=== PATIENT | female | born 1955 | race Caucasian/White ===

== ENCOUNTER → 2021-08-23 | Outpatient (CLI) | payer BC ==
[~2021-08-23] MED LIST: NO MEDICATIONS; OMEP1CAP73 PO; VICO5TAB PO; VITA100024 PO
== END ==
LOC: M LABSMTC 11:01
PROVIDERS: ATTEND Anesthesiology
DX: Z01.818 Encounter for other preprocedural examination (principal); Z11.52 Encounter for screening for COVID-19

== ENCOUNTER 2021-08-28 13:21 | Day surgery (SDC) | payer MEDICARE ==
[~2021-08-28] VITALS: Ht 152.4 cm; Wt 82.9 kg
[~2021-08-28 13:21] MED LIST changes: +LIDOCAINE 1% MDV 20ML VIAL SQ PRN; +LR 1,000 ML IV ONE; +NS 1,000 ML IV ONE
[2021-08-28] MEDS ORDERED: ROCURONIUM BROMIDE 50 MG/5 ML VIAL As Ordered ONE (14:35)
[2021-08-28] MEDS ORDERED: propofoL 200 MG/20 ML VIAL As Ordered ONE (14:35)
[2021-08-28] MEDS ORDERED: dexameTHASONE 4 MG/ML 1ML VIAL (J1100 PER 1MG) As Ordered ONE (14:35)
[2021-08-28] MEDS ORDERED: LIDOCAINE 2% 100MG/5ML SDV (FOR ANES.) As Ordered ONE (14:35)
[2021-08-28] MEDS ORDERED: MIDAZOLAM INJ 2MG/2ML VIAL (J2250 PER 1MG) As Ordered ONE (14:36)
[2021-08-28] MEDS ORDERED: ONDANSETRON 4MG/2ML VIAL As Ordered ONE (14:36)
[2021-08-28] MEDS ORDERED: fentaNYL 100 MCG/2 ML INJECTION (J3010) As Ordered ONE (14:36)
[2021-08-28] MEDS ORDERED: SUGAMMADEX SODIUM 500 MG/5 ML VIAL (BRIDION) As Ordered ONE (14:37)
[2021-08-28] MEDS ORDERED: KETOROLAC 60MG 2ML VIAL As Ordered ONE (14:37)
[2021-08-28] MEDS ORDERED: PIPERACILLIN/TAZOBACTAM SOD 3.375 GM in D5W MINI-BAG PLUS 50 ML IV ONE (15:05)
[2021-08-28] MEDS ORDERED: ISOVUE-300 61% 50ML VIAL As Ordered ONE (15:15)
--- NOTE | 2021-08-28 16:46 | REP ---
INDICATION: ABNORMAL BILE DUCT. COMPARISON: None. TECHNIQUE: Multiple C-arm views right upper quadrant during ERCP. FINDINGS: Contrast opacifies intrahepatic bile ducts as well as the common bile duct. There is no persistent filling defect or stricture of the visualized bile ducts. The cystic duct is visualized. Contrast extends into the gallbladder, which is partially visualized, with no definite persistent filling defect. The distal pancreatic duct is partially opacified. IMPRESSION: 170 seconds of fluoroscopy time was utilized. <Electronically signed by Phani Ann > 08/28/21 [id number]
--- NOTE | 2021-08-28 16:52 | ROOR ---
Patient Name: Analilia Siegel Procedure Date: 08/28/2021 3:19 PM Date of : 1955 Age: 66 Room: [facility] Gender: Female Note Status: Finalized Procedure: ERCP Indications: Abdominal pain of suspected biliary origin, Abnormal MRCP, Abnormal abdominal ultrasound Providers: Jimmie Sarabia MD Referring MD: Tosha Aly MD Requesting Provider: Medicines: Monitored Anesthesia Care Complications: No immediate complications. Procedure: Pre-Anesthesia Assessment: - The heart rate, respiratory rate, oxygen saturations, blood pressure, adequacy of pulmonary ventilation, and response to care were monitored throughout the procedure. The Duodenoscope was introduced through the mouth, and advanced to the duodenum and used to inject contrast into the bile duct. The ERCP was accomplished without difficulty. The patient tolerated the procedure well. Findings: The ammonia solution preparer film was normal. The esophagus was successfully intubated under direct vision without detailed examination of the pharynx, larynx, and associated structures, and upper GI tract. The upper GI tract was grossly normal. The major papilla was small. A wire was passed into the biliary tree. The bile duct was then deeply cannulated over the guidewire. Contrast was injected. I personally interpreted the bile duct images. Ductal flow of contrast was adequate. Image quality was adequate. The middle and upper third of the main bile duct were mildly dilated. The largest diameter was 10 mm. The lower third of the main bile duct was mildly narrowed for the last 1.5 cm. The transition is a smooth change in caliber. This is of uncertain significance. The diameter of the duct for the last 1.5 cm distally is 5 mm. A biliary sphincterotomy was made with a traction (standard) sphincterotome using ERBE electrocautery. There was no post-sphincterotomy bleeding. Prompt rapid drainage of bile and contrast was noted after the sphincterotomy, suggesting the small papilla was likely stenotic. The biliary tree was swept with a 12 mm balloon starting at the bifurcation. Nothing was found. Cells for cytology were obtained by brushing in the lower third of the main bile duct. One 4 Fr by 3 cm temporary stent with a 3/4 internal pigtail was placed into the ventral pancreatic duct. The stent was in good position. Impression: - The major papilla appeared to be small-suspect papillary stenosis. - The upper third of the main bile duct and middle third of the main bile duct were dilated. - The lower third of the main bile duct was mildly narrowed. The transition in caliber is smooth and benign appearing. It is of uncertain significance. - A biliary sphincterotomy was performed. - The biliary tree was swept and nothing was found. - Cells for cytology obtained in the lower third of the main duct. - One temporary stent was placed into the ventral pancreatic duct. Recommendation: - Await cytology results. - Observe patient's clinical course. - Confirm spontaneous stent passage by performing a KUB x-ray in 1 week. - My office will call you in the next few days to set you up for this study/exam. - Return to my office in 3 weeks. Procedure Code(s): --- Professional --- 15810, Endoscopic retrograde cholangiopancreatography (ERCP); with placement of endoscopic stent into biliary or pancreatic duct, including pre- and post-dilation and guide wire passage, when performed, including sphincterotomy, when performed, each stent 10415, 59, Endoscopic retrograde cholangiopancreatography (ERCP); with sphincterotomy/papillotomy Diagnosis Code(s): --- Professional --- R93.2, Abnormal findings on diagnostic imaging of liver and biliary tract R93.5, Abnormal findings on diagnostic imaging of other abdominal regions, including retroperitoneum R10.9, Unspecified abdominal pain K83.8, Other specified diseases of biliary tract CPT copyright 2019 [employer]. All rights reserved. The codes documented in this report are preliminary and upon medical biller coder review may be revised to meet current compliance requirements. Jimmie Sarabia MD Jimmie Sarabia MD 08/28/2021 4:52:04 PM Electronically signed by Jimmie Sarabia MD Number of Addenda: 0 Note Initiated On: 08/28/2021 3:19 PM Estimated Blood Loss: Estimated blood loss: none.
[2021-08-28] MEDS ORDERED: LR 1,000 ML IV SCH (17:05)
[2021-08-28] MEDS ORDERED: HYDROMORPHONE HCL 0.5 MG/ 0.5 ML SYRINGE (J1170 PER 1) IV PRN (17:05)
[2021-08-28] MEDS ORDERED: oxyCODONE 5MG TAB PO PRN (17:05)
[2021-08-28] MEDS ORDERED: fentaNYL 100 MCG/2 ML INJECTION (J3010) IV PRN (17:05)
[2021-08-28] MEDS ORDERED: ONDANSETRON 4MG/2ML VIAL IV PRN (17:05)
[2021-08-28 17:25] VITALS: BP 118/70
== END 2021-08-28 17:45 | disposition home or self-care (01) ==
LOC: M SDC 13:21
PROVIDERS: ATTEND Internal Medicine Gastroenterology
DX: R10.9 Unspecified abdominal pain (principal); R93.5 Abnormal findings on diagnostic imaging of other abdominal regions, including retroperitoneum; R93.2 Abnormal findings on diagnostic imaging of liver and biliary tract; K83.8 Other specified diseases of biliary tract; E78.5 Hyperlipidemia, unspecified; K21.9 Gastro-esophageal reflux disease without esophagitis; Z79.899 Other long term (current) drug therapy; Z85.3 Personal history of malignant neoplasm of breast; Z92.21 Personal history of antineoplastic chemotherapy
CPT/HCPCS: 43262; 43274; 74330; 88104; C2625; J1100; J1885; J2250; J2405; J2543; J3010; Q9967